=== PATIENT | female | born 1985 | race African-American/Black ===

== ENCOUNTER 2022-07-22 05:03 | Inpatient (IN) | payer MEDICAID, OTHER ==
[~2022-07-22] VITALS: Ht 152.4 cm; Wt 70.3 kg
[2022-07-22] MEDS ORDERED: NALOXONE HCL 0.4 MG/ML 1ML VIAL IM PRN (07:15)
[2022-07-22] MEDS ORDERED: RHO(D) IMMUNE GLOBULIN 300 MCG/SYR IM ONE (07:15)
[2022-07-22] MEDS ORDERED: LACTATED RINGERS 1,000 ML IV SCH ×2 (07:15→12:00)
[2022-07-22] MEDS ORDERED: BUTORPHANOL TARTRATE 2 MG/ML VIAL IV PRN (07:15)
[2022-07-22] MEDS ORDERED: CARBOPROST TROMETHAMINE 250 MCG/ML AMPUL IM PRN (07:15)
[2022-07-22] MEDS ORDERED: LIDOCAINE HCL 1% 20ML VIAL (Pyxis) INJ INFIL SCH (07:15)
[2022-07-22] MEDS ORDERED: METHYLERGONOVINE MALEATE 0.2 MG/ML IM PRN (07:15)
[2022-07-22] MEDS ORDERED: PENICILLIN G POTASSIUM 5 MMU in DEXT 5% WATER 100 ML IV NR (08:00)
[2022-07-22] MEDS: OXYTOCIN 30 UNITS/500ML NS PMX 500 ML IV SCH ×2 (08:44→10:09)
[2022-07-22] MEDS ORDERED: IBUPROFEN 400MG TABLET PO PRN (09:15)
[2022-07-22 09:40] LABS: BASOPHILS % 0.3 % (0.0-2.0); EOSINOPHILS % 0.5 % (0.0-5.0); HEMATOCRIT. 39.1 % (36.0-48.0); HEMOGLOBIN. 13.8 g/dL (12.0-16.0); LYMPHOCYTES % 15.9 % (20.0-50.0); MEAN CORPUSCULAR HEMOGLOBIN 32.4 pg (28.0-32.0); MEAN CORPUSCULAR VOLUME 92.2 fL (81.0-99.0); MEAN PLATELET VOLUME 10.4 fl (7.4-10.4); MONOCYTES % 7.1 % (2.0-8.0); NEUTROPHILS % 76.2 % (40.0-76.0); PLATELET 317 x1000/uL (130-400); RED BLOOD CELL COUNT 4.24 mill/uL (4.2-5.4); RED CELL DISTRIBUTION WIDTH 13.9 % (11.6-14.6)
[2022-07-22 09:48] LABS: INR 0.9; PARTIAL THROMBOPLASTIN TIME 27.1 sec (23.4-31.0)
[2022-07-22 09:51] LABS: CLARITY URINE CLOUDY (CLEAR); COLOR URINE YELLOW (YELLOW); KETONES URINE NEGATIVE (NEGATIVE); LEUKOCYTE ESTERASE URINE 1+ (NEGATIVE); NITRITE URINE NEGATIVE (NEGATIVE); OCCULT BLOOD URINE 3+ (NEGATIVE); PROTEIN URINE TRACE (NEGATIVE); SPECIFIC GRAVITY URINE 1.015 (1.005-1.030); UROBILINOGEN URINE 0.2 E.U./dL (0.2-1.0)
[2022-07-22] MEDS: IBUPROFEN 800MG TABLET PO PRN ×2 (10:27→19:00)
[2022-07-22 10:51] LABS: *AMPHETAMINES SCREEN URINE NEGATIVE (NEGATIVE); *BARBITURATES SCREEN URINE NEGATIVE (NEGATIVE); *BENZODIAZEPINES SCREEN URINE NEGATIVE (NEGATIVE); *COCAINE SCREEN URINE NEGATIVE (NEGATIVE); CANNABINOID URINE SCREEN NEGATIVE (NEGATIVE); METHADONE URINE SCREEN NEGATIVE (NEGATIVE); OPIATES URINE SCREEN NEGATIVE (NEGATIVE); PHENCYCLIDINE URINE SCREEN NEGATIVE (NEGATIVE)
[2022-07-22 12:30] VITALS: BP 119/67
[2022-07-22] MEDS ORDERED: PENICILLIN G POTASSIUM 2.5 MMU in DEXTROSE 5% WATER 50 ML IV SCH (13:00)
[2022-07-22 19:00] VITALS: BP 114/58
[2022-07-23 03:30] VITALS: BP 109/56
[2022-07-23 07:02] LABS: BASOPHILS % 0.2 % (0.0-2.0); EOSINOPHILS % 1.1 % (0.0-5.0); MEAN CORPUSCULAR HEMOGLOBIN 32.7 pg (28.0-32.0); MEAN CORPUSCULAR VOLUME 92.9 fL (81.0-99.0); MEAN PLATELET VOLUME 9.1 fl (7.4-10.4); MONOCYTES % 8.4 % (2.0-8.0); NEUTROPHILS % 70.3 % (40.0-76.0); PLATELET 252 x1000/uL (130-400); RED BLOOD CELL COUNT 3.66 mill/uL (4.2-5.4)
[2022-07-23] MEDS ORDERED: PRENATAL VIT/FE FUMARATE/FA TABLET PO SCH (09:00)
[2022-07-23 09:30] VITALS: BP 111/74
[2022-07-23 15:00] VITALS: BP 90/57
[2022-07-23 20:00] VITALS: BP 110/67
[2022-07-23] MEDS: FERROUS SULFATE 325MG TABLET PO SCH (20:20)
[2022-07-24 04:05] VITALS: BP 93/42
[2022-07-24 08:00] VITALS: BP 112/73
[2022-07-24] MEDS: FERROUS SULFATE 325MG TABLET PO SCH (09:21)
== END 2022-07-24 12:35 | disposition home or self-care (01) | DRG 560 ==
LOC: 8 EST LDRP 05:03 → OBSVTOIN 05:03 → 8 EST LDRP 05:05 → 8EST 15:18
PROVIDERS: ADMIT Obstetrics & Gynecology; ATTEND Obstetrics & Gynecology
PROC: 10E0XZZ Delivery of Products of Conception, External Approach (ICD-10-PCS; principal; 2022-07-22)
DX: O42.913 Preterm premature rupture of membranes, unspecified as to length of time between rupture and onset of labor, third trimester (principal); Z37.0 Single live birth; D62 Acute posthemorrhagic anemia; E03.9 Hypothyroidism, unspecified; O99.284 Endocrine, nutritional and metabolic diseases complicating childbirth; Z3A.39 39 weeks gestation of pregnancy
CPT/HCPCS: 36415; 76805; 76818; 80305; 81003; 85025; 86592; 86703; 86762; 86850; 86900; 87340; 87426; 99281; J2540; J7060; J7120; J2590